=== PATIENT | female | born 1965 | race Caucasian/White ===

== ENCOUNTER 2016-07-03 15:16 | Emergency (ER) | payer BC ==
[~2016-07-03] VITALS: Ht 160 cm; Wt 93.0 kg
[~2016-07-03 15:16] MED LIST: BACTRIM DS 8001 TAB PO; CIPRO 500MG TA500 MG PO; FLEXERIL10 MG PO; IBU800 MG PO; IBUPROFEN800 MG PO; KEFLEX 500MG.500 MG PO; LORTAB 5/500 501 TAB PO; LORTAB 500 MG-71 TAB PO; PERCOCET 10 MG1 EACH PO; PYRIDIUM 200MG200 MG PO; ULTRAM50 MG PO; ZITHROMAX Z PA250 MG PO
[2016-07-03 15:35] LABS: URINE BILIRUBIN - DIPSTICK NEGATIVE (NEG); URINE BLOOD NEGATIVE (NEG)
--- NOTE | 2016-07-03 15:47 | Emergency Room Report ---
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 N Clinical Suspician of Infection? N Mental Status: 1 - Regular (Normal Baseline) Sepsis Risk:Low Sepsis Risk Have you (or family members/close friends) recently traveled outside the [place]? N If Yes, where/when: Have you had exposure to infectious disease within the past month? N TB? Other? Specify: Patient states she's been having urinary frequency and some low back pain and some RIGHT flank pain area she also states she's had some diarrhea for the past 3 days she states she is keeping fluids down and has nausea no vomiting no fevers watery diarrhea ALLERGIES Coded Allergies: Sulfa (Sulfonamide Antibiotics) (NA-NAUSEA/VOMITING 04/29/15) morphine (ITCHING 04/29/15) Home Medications Reported Medications Ibuprofen (Ibu) 800 MG PO TID Cyclobenzaprine Hcl (Flexeril) 5 MG PO TID History Medical History General CAD? No Angina: No NH: No Hypertension? No Hyperlipidemia? No CHF? No DVT? No PE? No COPD? No Asthma? Yes Anemia? No GERD? No Gastric ulcers? No GI Bleed? No Hernia? Yes Thyroid Problems? No Hypothyroidism? No CVA? No Seizures? No Diabetes? No Insulin Dependent: No Insulin Pump: No Home FSBS? No Renal Insuffiency? No End Stage Renal Disease? No UTI? Yes Stones? No BPH? No GB Disease: No Nephritic Syndrome? No Asplenia? No Hepatitis? No Sickle Cell Disease? No Arthritis? Yes Migraines? No Cataracts? No Glaucoma? No MRSA? No HIV? No TB? No Anxiety? No Depression? No Cancer? Yes Site: CA CELL UTERUS More? 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 Eyes: conjunctiva/corneas clear ENT: Mucous membranes moist. Neck: No jugular venous distention. Cardiac: regular rate and rhythm Lungs: Clear to auscultation bilaterally Abdomen: Suprapubic tenderness, Nondistended, positive bowel sounds, no rebound : right CVA tenderness Extremities: no edema Musculoskeletal: No chest wall tenderness Skin: No rashes or lesions to exposed skin. Neurologic: Alert. No gross focal deficits Psychiatric: Normal affect (Miguelito DOTSON, [place]) General Appearance normal appearance Respiratory Status No: respiratory distress. Cardiovascular normal exam Neurologic alert Medical Decision Making LABS/Meds/Orders Pt receiving controlled substance in ED? No Results/Orders Laboratory Tests 07/03/16 1530: Urine Color YELLOW, Urine Appearance CLEAR, Urine pH 6.0, Ur Specific [place] >= 1.030, Urine Protein NEGATIVE, Urine Ketones NEGATIVE, Urine Blood NEGATIVE, Urine Nitrate NEGATIVE, Urine Bilirubin NEGATIVE, Urine Urobilinogen 0.2, Ur Leukocyte Esterase 1+ H, Urine WBC 5-10, Ur Squamous Epith Cells 3-5, Urine Bacteria 2+, Urine Mucus 3+, Urine Glucose NEGATIVE Orders Procedure Date/time Status CULTURE, URINE 07/03 1530 Active URINALYSIS/COMPLETE 07/03 1529 Complete Departure Departure Time of Disposition 1547 Disposition DC Home or Self Care(routine) Clinical Impression Primary Impression: UTI (urinary tract infection) Qualifiers: Urinary tract infection type: acute cystitis Hematuria presence: without hematuria Qualified Code: N30.00 - Acute cystitis without hematuria Secondary Impressions: Acute diarrhea Condition STABLE Referrals WELLINGTON ELY APRN (PCP) Patient Instructions DI for Urinary Tract Infection (UTI), DI for Viral Gastroenteritis -- Adult Additional Instructions Follow-up with your doctor as needed drink plenty of fluids Discharge Counseling Counseled pt/family regarding diagnosis, test results, medications/RX, home care, follow up needs Prescriptions Current Visit Scripts NITROFURANTOIN MONOHYD/M-CRYST (Macrobid 100 MG Capsule) 100 MG PO BID #14 CAP Ondansetron (Zofran 4MG Odt) 4 MG PO Q6HP PRN NAUSEA AND VOMITING #10 ODT ED Critical Care Critical Care No at 9003
[2016-07-03] MEDS ORDERED: MACROBID100 M3 PO (15:50)
[2016-07-03] MEDS ORDERED: ZOFRAN ODT4 MG PO (15:50)
[2016-07-03 15:54] VITALS: BP 135/82
== END 2016-07-03 16:14 | disposition home or self-care (01) ==
LOC: ER 15:16
PROVIDERS: Emergency Medicine
DX: N30.00 Acute cystitis without hematuria (principal); R19.7 Diarrhea, unspecified

== ENCOUNTER 2016-09-23 12:37 | Emergency (ER) | payer BC ==
[~2016-09-23] VITALS: Ht 160 cm; Wt 93.0 kg
[~2016-09-23 12:37] MED LIST changes: +MACROBID100 M3 PO; +ZOFRAN ODT4 MG PO
--- OUTSIDE RECORDS SUMMARY | 2016-09-23 12:45 | External Medical Summary Rpt ---
Author Author , Organization [employer] Address Unknown Phone Unavailable Purpose Continuity of Care Document - through 2016 Problems Code Diagnosis DOS Provider Status N39.0 URINARY TRACT INFECTION, SITE NOT SPECIFIED R10.9 UNSPECIFIED ABDOMINAL PAIN R19.7 DIARRHEA, UNSPECIFIED S93.402A SPRAIN OF UNSPECIFIED LIGAMENT OF LEFT ANKLE, INIT ENCNTR
--- OUTSIDE RECORDS SUMMARY | 2016-09-23 12:45 | External Medical Summary Rpt ---
Author Author , Organization [employer] Address Unknown Phone Unavailable Purpose Continuity of Care Document - 09-10-1998 through 2016 Immunization Name Date Route CVX Reacti Commen Provid Is Given on t er Refuse d Td Histor H149 No (adult 1998 ical ), Inform adsorb ation ed - Source Unspec ified
--- OUTSIDE RECORDS SUMMARY | 2016-09-23 12:45 | External Medical Summary Rpt ---
Author Author [employer] Organization [employer] Address Unknown Phone Unavailable Purpose Continuity of Care Document - through 2016
--- OUTSIDE RECORDS SUMMARY | 2016-09-23 12:45 | External Medical Summary Rpt ---
Author Author [employer], [employer] Organization [employer] Address Unknown Phone Unavailable
[2016-09-23] MEDS ORDERED: PROTONIX 40MG T40 MG PO (12:50)
[2016-09-23 13:01] LABS: URINE BILIRUBIN - DIPSTICK SMALL (NEG); URINE BLOOD NEGATIVE (NEG)
[2016-09-23] MEDS ORDERED: MOTRIN 600MG.600 MG PO (13:02)
[2016-09-23] MEDS ORDERED: HYOSCYAMINE0.125 M6 SL (13:32)
--- NOTE | 2016-09-23 13:36 | Urgent Treatment Center Report ---
History of Present Issue Date/Time Seen by Provider 09/23/16 1300 Visit Reason Pt arrived:Walked Presenting Problem:PT STATES SHE HAS PAIN EVERYTIME SHE EATS. SHE POINTS TO HER EPIGASTRIC AREA THAT GOES AROUND TO THE LEFT SIDE AND HER BACK FOR 1 WEEK. Location if Accident: Onset of symptoms date/time:/ or onset unknown for:MEDICAL HX UNKNOWN Have you (or family members/close friends) recently traveled outside the [place]? N If Yes, where/when: Have you had exposure to infectious disease within the past month? TB? Other? Specify: c/o abdominal pain, back pain and nausea x 1 week. Had been unchanged until today and now "much worse". Hx of IBS but reporting this is nothing like her IBS symptoms in the past. Starts in epigastric region but radiates around both flanks into back. Feels bloated. Worse after eating or with leaning forward. Brown watery diarrhea approx 10 times yesterday but none before and none since. Denies reflux or indigestion. No dysuria but urinary frequency x 1 month. Urine color and odor are unchanged. No known contacts with similiar symptoms. Partial hysterectomy, gallbladder intact. Source patient Exam Limitations no limitations ALLERGIES Coded Allergies: Sulfa (Sulfonamide Antibiotics) (NA-NAUSEA/VOMITING 04/29/15) morphine (ITCHING 04/29/15) Home Medications Reported Medications Pantoprazole Sodium (Protonix 40MG TAB) 40 MG PO TID IBUPROFEN (Motrin 600MG) 800 MG PO Q6HP PRN PAIN History Medical History General CAD? No Angina: No MT: No Hypertension? No Hyperlipidemia? No CHF? No DVT? No PE? No COPD? No Asthma? Yes Anemia? No GERD? No Gastric ulcers? No GI Bleed? No Hernia? Yes Thyroid Problems? No Hypothyroidism? No CVA? No Seizures? No Diabetes? No Insulin Dependent: No Insulin Pump: No Home FSBS? No Renal Insuffiency? No UTI? Yes Stones? No BPH? No GB Disease: No Nephritic Syndrome? No Asplenia? No Hepatitis? No Sickle Cell Disease? No Arthritis? Yes Migraines? No Cataracts? No Glaucoma? No MRSA? No HIV? No TB? No Anxiety? No Depression? No Cancer? Yes Site: [place] CELL UTERUS More? 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 Musculoskeletal other (aches all over today) Skin denies rash Physical Exam Vital Signs Vital Signs Date Time Temp Pulse Resp B/P Pulse O2 O2 Flow FiO2 Ox Delivery Rate 09/23 1247 98.0 78 20 117/75 98 General Appearance normal appearance, no apparent distress (leaning slightly forward) Respiratory Status No: respiratory distress, productive cough, non productive cough. Lung Sounds anterior: lungs clear. posterior: lungs clear. bilateral: lungs clear. Cardiovascular regular rate/rhythm, no peripheral edema, no murmur Gastrointestinal soft, no pulsatile mass, abnormal bowel sounds (hypoactive), no guarding, tenderness all quadrants except LLQ, most severe mid epigastric Back normal inspection, no vertebral tenderness, CVA tenderness (R) Neurologic alert, oriented x 3 Mental status normal mood/affect Skin normal color, warm/dry Lymphatic no adenopathy Medical Decision Making LABS/Meds/Orders Pt receiving controlled substance in ED? No Results/Orders Laboratory Tests 09/23/16 1301: Sodium Cancelled, Potassium Cancelled, Chloride Cancelled, Carbon Dioxide Cancelled, BUN Cancelled, Creatinine Cancelled, Estimated Creat Clear Cancelled, Estimated GFR (MDRD) Cancelled, Glucose Cancelled, Calcium Cancelled, Total Bilirubin Cancelled, AST Cancelled, ALT Cancelled, Alkaline Phosphatase Cancelled, Total Protein Cancelled, Albumin Cancelled, Globulin Cancelled, Albumin/Globulin Ratio Cancelled, WBC Cancelled, RBC Cancelled, Hgb Cancelled, Hct Cancelled, MCV Cancelled, RDW Cancelled, Plt Count Cancelled, Gran % Cancelled, Gran # Cancelled, Lymphocytes % Cancelled, Eosinophils % Cancelled, Basophils % Cancelled, Lymphocytes # Cancelled, Eosinophils # Cancelled, Basophils # Cancelled, PUBS MCHC Cancelled, MCH Cancelled 09/23/16 1257: Urine Color YELLOW, Urine Appearance CLEAR, Urine pH 5.5, Ur Specific [place] 1.025, Urine Protein NEGATIVE, Urine Ketones NEGATIVE, Urine Blood NEGATIVE, Urine Nitrate NEGATIVE, Urine Bilirubin SMALL, Urine Urobilinogen 0.2, Ur Leukocyte Esterase NEGATIVE, Urine Glucose NEGATIVE Current Medication Orders Sig/Saw Start time Last Medication Dose Route Stop Time Status Admin Sodium Chloride 10 ML PRN PRN 09/23 1315 AC IV 09/24 1301 Orders Procedure Date/time Status [facility] [place] URINE DIPSTICK 09/23 1257 Complete Departure Departure Time of Disposition 1325 Disposition Still a Patient Clinical Impression Primary Impression: Abdominal pain Qualifiers: Abdominal location: generalized Qualified Code: R10.84 - Generalized abdominal pain Secondary Impressions: Nausea Condition STABLE Additional Instructions Sent to ER for abdominal pain evaluation and management at 1331
--- NOTE | 2016-09-23 13:44 | Emergency Room Report ---
History of Present Illness Time Seen by MD Ballard Presenting Problem in Triage Pt arrived:Walked Presenting Problem:PT STATES SHE HAS PAIN EVERYTIME SHE EATS. SHE POINTS TO HER EPIGASTRIC AREA THAT GOES AROUND TO THE LEFT SIDE AND HER BACK FOR 1 WEEK. 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 N Clinical Suspician of Infection? N Mental Status: 1 - Regular (Normal Baseline) Sepsis Risk:Low Sepsis Risk Have you (or family members/close friends) recently traveled outside the [place]? N If Yes, where/when: Have you had exposure to infectious disease within the past month? TB? Other? Specify: Comment The patient complains of epigastric pain for a week. She has early satiety. She had some diarrhea yesterday. She has had nausea. The pain radiates around her LEFT flank area and today radiates all the way around to the RIGHT upper quadrant. She has had her gallbladder checked, but it has been many years. She last ate yesterday evening. She has only had some sips of tea today. No fever. The patient is a nondrinker. She has been taking ibuprofen for the pain. ALLERGIES Coded Allergies: Sulfa (Sulfonamide Antibiotics) (NA-NAUSEA/VOMITING 04/29/15) morphine (ITCHING 04/29/15) Home Medications Reported Medications Hyoscyamine Sulfate 0.125 MG SL TID #120 Pantoprazole Sodium (Protonix 40MG TAB) 40 MG PO TID IBUPROFEN (Motrin 600MG) 800 MG PO Q6HP PRN PAIN History Medical History General CAD? No Angina: No ID: No Hypertension? No Hyperlipidemia? No CHF? No DVT? No PE? No COPD? No Asthma? Yes Anemia? No GERD? No Gastric ulcers? No GI Bleed? No Hernia? Yes Thyroid Problems? No Hypothyroidism? No CVA? No Seizures? No Diabetes? No Insulin Dependent: No Insulin Pump: No Home FSBS? No Renal Insuffiency? No End Stage Renal Disease? No UTI? Yes Stones? No BPH? No GB Disease: No Nephritic Syndrome? No Asplenia? No Hepatitis? No Sickle Cell Disease? No Arthritis? Yes Migraines? No Cataracts? No Glaucoma? No MRSA? No HIV? No TB? No Anxiety? No Depression? No Cancer? Yes Site: [place] CELL UTERUS More? 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 Family History Family Hx Diabetes Yes CAD No Hypertension Yes Hyperlipidemia Yes Cancer Yes TB No Social History Smoking Hx Smoker: Never Smoker Tobacco: No Packs/day N/A Alcohol Alcohol: No Review of Systems All Other Systems Reviewed and Negative Constitutional denies fever Gastrointestinal see HPI, abdominal pain, diarrhea, nausea Physical Exam Vital Signs Vital Signs Date Time Temp Pulse Resp B/P Pulse O2 O2 Flow FiO2 Ox Delivery Rate 09/23 1327 98.0 78 20 117/75 98 09/23 1247 98.0 78 20 117/75 98 General Appearance normal appearance, WD/WN Eye Exam - bilateral eye normal exam, bilateral eye PERRL, bilateral eye EOMI Ear, Nose, Throat hearing grossly normal, normal ENT inspection Neck normal inspection, non-tender, supple, full range of motion Respiratory Status Yes: trachea midline, chest symmetrical, non tender chest. No: respiratory distress. Lung Sounds bilateral: normal breath sounds, lungs clear. Cardiovascular normal exam, regular rate/rhythm, no peripheral edema, no gallop, no JVD, no murmur, no rub, normal peripheral pulses Peripheral Pulses Pulses normal Yes Gastrointestinal normal bowel sounds, soft, no organomegaly, no guarding, no rebound, tenderness (upper abdomen) Back normal inspection Extremities normal inspection Neurologic alert, normal exam, oriented x 3 Mental status normal mood/affect Skin intact, normal color, warm/dry Medical Decision Making LABS/Meds/Orders Pt receiving controlled substance in ED? No Results/Orders Laboratory Tests 09/23/16 1340: Creatine Kinase 105, CK-MB (CK-2) Rel Index 0.5, CK and CKMB Interp < 0.5, Troponin I < 0.02 09/23/16 1340: Sodium 142, Potassium 3.8, Chloride 106, Carbon Dioxide 28, BUN 17, Creatinine 0.8, Estimated Creat Clear 125, Estimated GFR (MDRD) 76, Glucose 91, Calcium 9.3 , Total Bilirubin 0.6, AST 19, ALT 34, Alkaline Phosphatase 106, Total Protein 7.7, Albumin 4.1, Globulin 3.6 H, Albumin/Globulin Ratio 1.1, Amylase 31, Lipase 169, WBC 5.4, RBC 4.55, Hgb 13.6, Hct 40.9, MCV 89.9, RDW 12.7, Plt Count 365, MPV 7.7, Gran % 54.4, Gran # 2.9, Lymphocytes % 37.3, Monocytes % 6.2, Eosinophils % 0.9, Basophils % 1.1, Lymphocytes # 2.0, Monocytes # 0.3, Eosinophils # 0.1, Basophils # 0.1, PUBS MCHC 33.2, MCH 29.8 09/23/16 1301: Sodium Cancelled, Potassium Cancelled, Chloride Cancelled, Carbon Dioxide Cancelled, BUN Cancelled, Creatinine Cancelled, Estimated Creat Clear Cancelled, Estimated GFR (MDRD) Cancelled, Glucose Cancelled, Calcium Cancelled, Total Bilirubin Cancelled, AST Cancelled, ALT Cancelled, Alkaline Phosphatase Cancelled, Total Protein Cancelled, Albumin Cancelled, Globulin Cancelled, Albumin/Globulin Ratio Cancelled, WBC Cancelled, RBC Cancelled, Hgb Cancelled, Hct Cancelled, MCV Cancelled, RDW Cancelled, Plt Count Cancelled, Gran % Cancelled, Gran # Cancelled, Lymphocytes % Cancelled, Eosinophils % Cancelled, Basophils % Cancelled, Lymphocytes # Cancelled, Eosinophils # Cancelled, Basophils # Cancelled, PUBS MCHC Cancelled, MCH Cancelled 09/23/16 1257: Urine Color YELLOW, Urine Appearance CLEAR, Urine pH 5.5, Ur Specific [place] 1.025, Urine Protein NEGATIVE, Urine Ketones NEGATIVE, Urine Blood NEGATIVE, Urine Nitrate NEGATIVE, Urine Bilirubin SMALL, Urine Urobilinogen 0.2, Ur Leukocyte Esterase NEGATIVE, Urine Glucose NEGATIVE Current Medication Orders Sig/Saw Start time Last Medication Dose Route Stop Time Status Admin Famotidine 20 MG ONCE ONE 09/23 1530 AC IV 09/23 1531 Sodium Chloride 10 ML PRN PRN 09/23 1400 AC IV 09/24 1349 Sodium Chloride 10 ML PRN PRN 09/23 1315 AC IV 09/24 1301 Orders Procedure Date/time Status ELECTROCARDIOGRAM REQUEST 09/23 135 Active CARDIAC ENZYMES 09/23 135 Complete IV SALINE LOCK 09/23 1350 Active LIPASE 09/23 1350 Complete CBC WITH AUTO DIFF 09/23 135 Complete CHEM 12 PROFILE 09/23 1350 Complete AMYLASE 09/23 1350 Complete UTC URINE DIPSTICK 09/23 1257 Complete 12 LEAD EKG-HAFSASON (INITIAL) 09/23 UNK Active CM/EKG CM/EKG Comments EKG interpreted by Ramone Ramsey MD: Rhythm: sinus bradycardia Rate: 58 [place]: normal Ectopy: none Conduction: Incomplete RIGHT bundle-branch block ST Segment Changes: none T Wave Changes: none Q Waves: none No evidence of acute ischemia or injury Poor R-wave progression No change from prior electrocardiogram XRAY/CT/US XRAY/CT/US Ultrasound gallbladder Comment Results per radiologist: Negative RIGHT upper quadrant ultrasound Departure Departure Disposition DC Home or Self Care(routine) Clinical Impression Primary Impression: Epigastric pain Secondary Impressions: Early satiety Condition STABLE Referrals WELLINGTON ELY APRN (Family) Patient Instructions DI for Abdominal Pain-Adult Additional Instructions See Dr. Ely tomorrow as scheduled. Additional instructions for ABDOMINAL PAIN: See your physician as soon as possible for further evaluation. Return immediately if worsening abdominal pain, vomiting, shortness of breath, fever, vomiting of blood or abdominal distention. Prescriptions Current Visit Scripts Famotidine (Pepcid) 40 MG PO DAILY #20 TAB Ondansetron (Zofran 4MG Odt) 4 MG PO Q8HP PRN NAUSEA AND VOMITING #10 ODT ED Critical Care Critical Care No at 1521
[2016-09-23 14:04] LABS: HEMOGLOBIN 13.6 g/dL (12.2-16.2); LYMPH % 37.3 % (10-50.0)
--- NOTE | 2016-09-23 14:51 | RADIOLOGY REPORT PS360 ---
US GALLBLADDER (ABD LTD) HISTORY: Epigastric pain epigastric pain ORDERING PHYSICIAN: Ramone Ramsey MD PATIENT AGE: 51 years COMPARISON: None FINDINGS: PANCREAS: Unremarkable. No obvious mass or abnormal fluid collection. No ductal dilatation LIVER: No focal liver lesions demonstrated. Homogeneous echogenicity. No intrahepatic biliary ductal dilatation evident RIGHT KIDNEY: Unremarkable. Normal size and echogenicity. No hydronephrosis GALLBLADDER: No gallstones, gallbladder wall thickening, pericholecystic fluid, or biliary dilatation. IMPRESSION: Negative gallbladder/right upper quadrant ultrasound
[2016-09-23] MEDS ORDERED: PEPCID40 MG PO (15:20)
[2016-09-23] MEDS ORDERED: ZOFRAN ODT4 MG PO (15:20)
[2016-09-23 15:37] VITALS: BP 149/81
== END 2016-09-23 15:38 | disposition home or self-care (01) ==
LOC: UTC 12:37 → ER 12:40 → UTC 12:40 → ER 15:38
PROVIDERS: Emergency Medicine; Nurse Practitioner Family
DX: R10.13 Epigastric pain (principal); R68.81 Early satiety

== ENCOUNTER → 2016-10-02 | Outpatient (CLI) | payer BC ==
[~2016-10-02] MED LIST changes: +HYOSCYAMINE0.125 M6 SL; +MOTRIN 600MG.600 MG PO; +PEPCID40 MG PO; +PROTONIX 40MG T40 MG PO
--- NOTE | 2016-10-06 10:50 | RADIOLOGY REPORT PS360 ---
CT ABD PELVIS W/ CONTRAST Ordering Physician: WELLINGTON ELY APRN Patient Age: 51 years: Femal HISTORY: EPIGASTRIC PAIN left upper quadrant pain for 3 weeks. Epigastric pain. COMPARISON is made to previous CT abdomen/pelvis November 2014. TECHNIQUE: Helical CT scanning performed the abdomen and pelvis with findings a 5 cc Isovue-370 as well as oral contrast Sagittal and coronal reconstruction CT workstation FINDINGS Lower thorax. No acute findings lung bases clear heart normal size Abdomen Pelvis: . Liver, with no lesions evident. Generous right lobe measuring 3 seem in length but overall wire of liver normal. Spleen pancreas adrenals unremarkable. Gallbladder but no calcified stones. No biliary ductal dilatation. Kidneys. No urinary tract obstruction. Left kidney There are 2 small punctate calculi upper pole left kidney. Largest measuring just over 2.5 mm size. The other barely evident less than 2 mm.. Right kidney. 1 cm cyst medial aspect.. Ureters unremarkable Pelvis. No pelvic mass. Hysterectomy. No adnexal masses no pelvic nor retroperitoneal adenopathy. Scattered small mesenteric lymph nodes most evident towards the RLQ, with largest measuring up to 1 cm. Coronal image 33. Unimpressive but could reflect mild mesenteric adenitis. GI tract. Upper normal wall thickness distal esophagus. Stomach unremarkable. The duodenum unremarkable. Proximal jejunum upper normal caliber at the left upper quadrant ultrasound inhomogeneous contrast within is a generous 3 cm a small bowel loop at the left upper quadrant. Nonspecific. If pain extensive persist consider follow-up small bowel study. Beyond this the remainder the small bowel is unremarkable. Terminal ileum region satisfactory. Appendix is been removed. Large bowel. Minimal stool throughout the colon. Oral contrast is passed fairly rapidly through the small bowel into the large bowel but with scanning over 2.5 hours after drinking may account for such. . There are perhaps a few scattered diverticuli seen throughout the sigmoid colon but no good evidence of diverticulitis. Overall the left colon and sigmoid a rather contracted and empty which likely accounts for areas of upper normal wall thickness. It IMPRESSION:...... No acute findings abdomen or pelvis. Small bowel loops left upper abdomen are upper normal in caliber, & a few with upper normal wall thickness. Nonspecific but of LUQ pain persist consider further evaluation of small bowel, particularly if any related symptoms. .. A few small mesenteric lymph nodes, most evident towards RLQ. Appear to be similar to 2015 CT & thus reflect stable minor reactive nodes.., Unimpressive &. Doubt mesenteric adenitis.. Scattered diverticuli at sigmoid colon but no diverticulitis. .
== END ==
LOC: RAD 11:07
DX: R10.13 Epigastric pain (principal)
CPT/HCPCS: Q9967

== ENCOUNTER → 2016-11-16 | Day surgery (SDC) | payer BC ==
--- NOTE | 2016-11-16 15:03 | Operative Note ---
Colonoscopy ([place]) Procedure date: 11/16/16 Date of : 69 Procedure:Colonoscopy Colonoscopy with cold snare polypectomy Indications: Mrs. Read is a 51-year-old female who is here for follow-up screening/ surveillance colonoscopy. This is the patient's fourth or fifth colonoscopy for high-risk screening since her father had colon cancer at the age of 58. She did have a colonoscopy in August 2014 at which time a colon polyp was removed (Dr. Bon Becker M.D.). The patient formerly had constipation several years ago but now has loose or watery diarrhea which can occur up to 10-15 times daily. The diarrhea began after her hysterectomy more than a decade ago. She has had generalized abdominal discomfort, gassiness and bloating. The patient reports no significant rectal bleeding or weight loss. She does have some fatigue. Performing Provider: Chong Farias MD Referrring Provider: Alanna LUNA Sedation: Fentanyl 200 mg IV/Versed 9 mg IV Procedure: Prior to the procedure, a history and physical exam was performed, and patient medications and allergies were reviewed. The risks and benefits of the procedure and the sedation options and risks were discussed with the patient. All questions were answered and informed consent was obtained. Patient identification and proposed procedure were verified by the physician and the nurse. The patient was placed in a left lateral decubitus position. Throughout the procedure, the patient's blood pressure, pulse, and oxygen saturations were monitored continuously. Findings: On digital rectal examination there was normal rectal tone. There were no external hemorrhoids. The colonoscope was introduced through the anal canal to the rectum and advanced to the cecum. The ileocecal valve and appendiceal orifice were identified. The scope was advanced a short distance into the ileum which appeared grossly normal. The scope was then withdrawn into the colon. There were 3 colon polyps identified in the ascending 1 and descending 2. These ranged in size from 4-6 mm and were all removed via cold snare polypectomy. There were scattered diverticuli throughout the descending and sigmoid colon (LEFT colon). The rectum itself was normal. Upon retroflexion within the rectum there were grade 1 internal hemorrhoids. Impressions: 1. Diminutive colonic polyps 3 2. Left-sided diverticulosis 3. Grade 1 internal hemorrhoids Recommendations: I will follow up the polyp pathology and recommend repeat colonoscopy again in 3 -5 years based upon the polyp histology. I would encourage dietary measures, fiber bulk supplementation, probiotic and anti-spasmodic (Levsin or Librax) on a long-term daily maintenance basis. If the patient fails to improve with anti-spasmodic, I would consider adding Viberzi. Complications: None EBL (ml): 0 at 1503
[2016-11-16 16:20] VITALS: BP 117/62
== END ==
LOC: SDC 13:22
PROVIDERS: Internal Medicine Gastroenterology
PROC: 0DBM8ZX Excision of Descending Colon, Via Natural or Artificial Opening Endoscopic, Diagnostic (ICD-10-PCS; 2016-11-16)
PROC: 0DBK8ZX Excision of Ascending Colon, Via Natural or Artificial Opening Endoscopic, Diagnostic (ICD-10-PCS; principal; 2016-11-16 14:30)
DX: K63.5 Polyp of colon (principal); Z80.0 Family history of malignant neoplasm of digestive organs; Z12.11 Encounter for screening for malignant neoplasm of colon; K57.30 Diverticulosis of large intestine without perforation or abscess without bleeding; K64.0 First degree hemorrhoids

== ENCOUNTER → 2017-02-10 | Outpatient (CLI) | payer BC ==
--- NOTE | 2017-02-11 07:23 | RADIOLOGY REPORT PS360 ---
MRI-L-SPINE W/O, MRI-3D RENDERING/MYELOGRAM HISTORY: Low back pain, left leg pain and numbness LOW BACK PAIN ORDERING PHYSICIAN: WELLINGTON ELY APRN PATIENT AGE: 51 years COMPARISON: 09/18/2015 TECHNIQUE: Standard multiplanar multiecho sequences are performed without contrast. 3-D MIP and myelographic images are also rendered and reviewed FINDINGS: The spinal cord ends at the L1-L2 level. There is normal alignment. Multilevel degenerative disc disease is present as described below. T11-T12 and T12-L1 show mild degenerative disc disease with some endplate irregularity. L1-L2: Degenerative disc disease with minimal concentric bulging disc. L2-L3: Unremarkable. L3-L4: Mild disc desiccation. Disc height is preserved. L4-L5: Minimal bulging disc with very minimal central disc protrusion with suggestion of a small annular tear. The disc protrusion is somewhat smaller than when compared to the previous exam as noted on the axial images. No impingement. Mild facet and ligamentum flavum hypertrophy with small amount fluid in the right facet joint. Small amount fluid is present posterior to the left facet joint suggestion of a tiny synovial cyst. L5-S1: Mild facet hypertrophic change with minimal left foraminal narrowing. Not significant change. No canal stenosis or disc herniation is evident. IMPRESSION: 1. Mild multilevel lumbar spondylosis as detailed above. No disc herniation or canal stenosis... L5-S1 2. Minimal bulging disc at L4-L5 with very minimal central disc protrusion with suggestion of a small annular tear. The disc protrusion is somewhat smaller than when compared to the previous exam as noted on the axial images. No impingement. Mild facet and ligamentum flavum hypertrophy with small amount fluid in the right facet joint. Small amount fluid is present posterior to the left facet joint suggestion of a tiny synovial cyst
== END ==
LOC: RAD 15:56
DX: M54.5 Low back pain (principal)

== ENCOUNTER 2017-02-27 13:07 | Emergency (ER) | payer BC ==
[~2017-02-27] VITALS: Ht 160 cm; Wt 93.0 kg
--- OUTSIDE RECORDS SUMMARY | 2017-02-27 13:11 | External Medical Summary Rpt | CCD ---
Author Author , HEVER KATHLEEN Address Unknown Phone [email or web address] Purpose Continuity of Care Document - through 2016 Problems Code Diagnosis DOS Provider Status N39.0 URINARY TRACT INFECTION, SITE NOT SPECIFIED R10.13 EPIGASTRIC PAIN R10.9 UNSPECIFIED ABDOMINAL PAIN R11.0 NAUSEA R19.7 DIARRHEA, UNSPECIFIED R68.81 EARLY SATIETY S93.402A SPRAIN OF UNSPECIFIED LIGAMENT OF LEFT ANKLE, INIT ENCNTR
--- OUTSIDE RECORDS SUMMARY | 2017-02-27 13:11 | External Medical Summary Rpt | CCD ---
Author Author , HEVER Organization HEVER Address Unknown Phone [email or web address] Immunization Name Date Rout CVX Reac Dose Comm Prov Is Faci e tion ent ider Refu lity Give sed n Td 06-2 9 999 Hist H149 No H149 (sandy 2-19 oric lt), 99 al Info adso rmat rbed ion - Sour ce Unsp ecif ied
--- OUTSIDE RECORDS SUMMARY | 2017-02-27 13:11 | External Medical Summary Rpt | CCD ---
Author Author , HEVER KATHLEEN Address Unknown Phone [email or web address] Purpose Continuity of Care Document - through 2016 Problems Code Diagnosis DOS Provider Status N39.0 URINARY TRACT INFECTION, SITE NOT SPECIFIED R10.13 EPIGASTRIC PAIN R10.9 UNSPECIFIED ABDOMINAL PAIN R11.0 NAUSEA R19.7 DIARRHEA, UNSPECIFIED R68.81 EARLY SATIETY S93.402A SPRAIN OF UNSPECIFIED LIGAMENT OF LEFT ANKLE, INIT ENCNTR
--- OUTSIDE RECORDS SUMMARY | 2017-02-27 13:11 | External Medical Summary Rpt | CCD ---
Author Author , HEVER Organization HEVER Address Unknown Phone [email or web address] Immunization Name Date Rout CVX Reac Dose Comm Prov Is Faci e tion ent ider Refu lity Give sed n Td 06-2 9 999 Hist H149 No H149 (sandy 2-19 oric lt), 99 al Info adso rmat rbed ion - Sour ce Unsp ecif ied
[2017-02-27] MEDS ORDERED: ZITHROMAX Z-PA250 M2 PO (14:39)
[2017-02-27] MEDS ORDERED: TESSALON PERLE100 M1 PO (14:39)
[2017-02-27 14:42] VITALS: BP 98/78
--- NOTE | 2017-02-27 14:42 | Urgent Treatment Center Report ---
History of Present Issue Date/Time Seen by Provider 02/27/17 1433 Visit Reason Pt arrived:Walked Presenting Problem:PT C/O COUGH, CONGESTION,LOW GRADE FEVER. Location if Accident: Onset of symptoms date/time:/ or onset unknown for:MEDICAL HX UNKNOWN Have you (or family members/close friends) recently traveled outside the [place]? N If Yes, where/when: Have you had exposure to infectious disease within the past month? TB? Other? Specify: Source patient, RN notes reviewed Exam Limitations no limitations Comment A 51-year-old female presents for chest congestion, sinus pressure and congestion, cough, and fever. ALLERGIES Coded Allergies: Sulfa (Sulfonamide Antibiotics) (NA-NAUSEA/VOMITING 11/16/16) morphine (ITCHING 11/16/16) Home Medications Reported Medications IBUPROFEN (Motrin 600MG) 800 MG PO Q6HP PRN PAIN History Medical History General CAD? No Angina: No VT: No Hypertension? No Hyperlipidemia? No CHF? No DVT? No PE? No COPD? No Asthma? Yes Anemia? No GERD? No Gastric ulcers? No GI Bleed? No Hernia? Yes Thyroid Problems? No Hypothyroidism? No CVA? No Seizures? No Diabetes? No Insulin Dependent: No Insulin Pump: No Home FSBS? No Renal Insuffiency? No UTI? Yes Stones? No BPH? No GB Disease: No Nephritic Syndrome? No Asplenia? No Hepatitis? No Sickle Cell Disease? No Arthritis? Yes Migraines? No Cataracts? No Glaucoma? No MRSA? No HIV? No TB? No Anxiety? No Depression? No Cancer? Yes Site: CA CELL UTERUS More? Yes Additional hx: IBS Immunization HX DT/Tetanus 06/30/2008 Flu NEVER Pneumonia NEVER Surgical Hx Previous Surgery?Y Tubal Ligation CARPAL TUNNEL RT HAND LASER SURGERY ( UTERINE) PARTIAL HYSTERCTOMY HYST/HERNIA RT ARM APPENDECTOMY R SHOULDER SURGERY R ELBOW Family History Family HX Diabetes Yes CAD No Hypertension Yes Hyperlipidemia Yes Cancer Yes TB No Social History Smoking Hx Smoker: Never Smoker Tobacco: No Packs/day N/A Alcohol Alcohol: No Review of Systems All Other Systems Reviewed and Negative ENT see HPI, nose discharge, nose congestion. Respiratory see HPI, cough Physical Exam Vital Signs Vital Signs Date Time Temp Pulse Resp B/P Pulse O2 O2 Flow FiO2 Ox Delivery Rate 02/27 1426 97.9 68 22 98/78 96 - WBC >12,000 or <4,000 or 10% bands? 2 or more SIRS Criteria Met? B/P:/ MAP:84 Creatinine >2.0? UA output<0.5ml/kg/hr for 2 hrs? Platelet count >100,000? Lactate >2.0mmol/1? INR >1.2 or PTT > than 60 sec? Evidence of Organ Dysfunction? Provider documented clinical suspician of infection? Sepsis Criteria Count: 1 Sepsis Risk: General Appearance normal appearance, no apparent distress Eye Exam - bilateral eye normal exam, bilateral eye PERRL, bilateral eye EOMI Ear, Nose, Throat hearing grossly normal, sinus pain/drainage, nasal congestion, pharyngeal erythema Neck normal inspection, full range of motion Respiratory Status Yes: trachea midline, chest symmetrical, non tender chest. No: respiratory distress. Lung Sounds posterior: wheezing. left: wheezing. right: normal breath sounds, lungs clear. Cardiovascular normal exam, regular rate/rhythm, no peripheral edema Neurologic alert, normal exam, oriented x 3 Medical Decision Making LABS/Meds/Orders Pt receiving controlled substance in ED? No Results/Orders Orders Procedure Date/time Status [facility] FLU A,B 02/27 1440 Active Departure Departure Time of Disposition 1437 Disposition DC Home or Self Care(routine) Clinical Impression Primary Impression: Bronchitis Condition STABLE Referrals WELLINGTON ELY APRN (Family) Patient Instructions Acute Bronchitis Additional Instructions Antibiotics as ordered Follow-up with primary care this week His symptoms worsen or do not improve return or be seen in the ER Discharge Counseling Counseled pt/family regarding diagnosis, test results, medications/RX, home care, follow up needs Prescriptions Current Visit Scripts Azithromycin (Zithromax) 250 MG PO DAILY 5 Days USE DIRECTED. Benzonatate (Tessalon Perle) 100 MG PO BID 3 Days at 1441
== END 2017-02-27 14:46 | disposition home or self-care (01) ==
LOC: UTC 13:07
DX: J20.9 Acute bronchitis, unspecified (principal)